=== PATIENT | female | born 1990 | race Caucasian/White ===

== ENCOUNTER 2017-05-08 00:29 | Inpatient (IN) | payer OTHER ==
[~2017-05-08] VITALS: Ht 177.8 cm; Wt 97.0 kg
[2017-05-08] VITALS (31 sets, daily range): BP systolic 91–153; BP diastolic 51–90
[2017-05-08] MEDS ORDERED: ZANTTAB PO (00:58)
[2017-05-08] MEDS ORDERED: PREN1CAP8 PO (00:58)
[2017-05-08 01:24] LABS: MEAN CORPUSCULAR HGB CONC 35.2 g/dl (32.0-36.5); MEAN CORPUSCULAR VOLUME 85.2 fl (80.0-96.0); RED CELL DISTRIBUTION WIDTH 13.3 % (11.5-14.5); WHITE BLOOD COUNT 8.2 K/mm3 (4.0-10.0)
[2017-05-08] MEDS ORDERED: LR 1,000 ML IV SCH (01:43)
[2017-05-08] MEDS ORDERED: LACTATED RINGER'S 1000 ML IV STA (01:43)
[2017-05-08] MEDS ORDERED: miSOPROStol 50 MCG 1/2 TAB (S0191) PO ONE ×2 (01:45→06:45)
--- NOTE | 2017-05-08 01:52 | HPEPDOC ---
Obstetrical History & Physical General Date of Admission May 08, 2017 at 00:29 History of Present Illness 26 y/o at 41+1 by 9 wk US here for scheduled IOL for pending postdates. Uncomplicated Information Provided By: Patient Care Care: Good Care Dating Final EDC: Apr 30, 2017 Final EDC by: 1st trimester (US) Past Medical History Past Obstetrical History : Past Obstetrical History: Primgravida Past Medical History Medical History none Surgical History: [place] teeth, Other (knee 2010) Family History Significant Family History: No pertinent family hx Social History Marital Status: Single Family situation: Spouse/partner home Psychosocial History: No pertinent psych hx * Smoker: non-smoker Alcohol: Denies Drugs: denies Abuse Violence Screening Have you been hit/kicked/slapp: No Have you been sexually assault: No Imunizations Tdap status: current Influenza Status: current Allergies Coded Allergies: Cefaclor (Verified Allergy, Mild, RASH, 05/08/17) Medications Miscellaneous Medications Multivitamins/ ( Multi + Dha 27-0.8-250 mg) 1 Cap Cap, 1 CAP PO Ranitidine Hcl (Zantac 150 Maximum Streng) 150 Mg Tab, 150 TAB PO Physical Examination Physical Examination GENERAL: Alert and oriented times three. ABDOMEN: Gravid and non-tender to touch. FETUS: Is vertex (VTX) by sterile vaginal examination (SVE), Cx 2/70/-3, membranes swept, adeq pelvic for TAMMY, EFW 3400 gm HEART RATE: Regular rate and rhythm. LUNGS: Clear to auscultation (CTA). EXTREMITIES: No edema. Vital Signs/I&O Vital Signs Date Time Temp Pulse Resp B/P (MAP) Pulse Ox O2 Delivery O2 Flow Rate FiO2 05/08/17 00:33 98.6 101 18 118/79 (92) Laboratory Data 24H LABS Laboratory Tests 2 05/08/17 00:41: Serology Scanned Report Hepatitis B Testing 05/08/17 00:55: CBC/BMP Laboratory Tests 05/08/17 00:55 Red Blood Count 4.17, Mean Corpuscular Volume 85.2, Mean Corpuscular Hemoglobin 30.0, Mean Corpuscular Hemoglobin Concent 35.2, Red Cell Distribution Width 13.3 Urine Culture: No Growth Pertinent Laboratoy Data Blood Type: O+ RBC Antibody Screen: Negative HIV: Negative Hepatitis B: Negative Hepatitis C: Unknown Rapid Plasma Reagin: Nonreactive Rubella: Immune Varicella: Immune Chlamydia/Gonorrhea: Negative Group B Streptococcus: Negative Cystic Fibrosis: Negative Glucose Tolerance Test: 92 Anatomy Ultrasound Placenta Location: Posterior Normal Anatomy: Yes Placenta Previa: No Steroid Therapy Steroid Therapy: No Assessment Variability: Moderate Accelerations: Positive Decelerations: None Tocometer Frequency: irregular Assessment/Plan Assessment 41+1, favorable cx. Plan Admit and orient. Supervisor Dyer and consent. Diet: clrs Group B Streptococcus (GBS) negative Labs and intravenous (IV) per unit protocol. Counseled on Pitocin and induction of labor (IOL). Lactated Ringers (LR): Bolus 100mL prior to epidural if desired, o/w at 125 mL/ hr. Anticipate normal spontaneous delivery () C-S as appropriate. Will start with Oral Cytotec 50 mcg and likely transition to pitocin later. Sessions SESSIONS,JOSE Pratt MD May 08, 2017 01:52
--- NOTE | 2017-05-08 06:40 | IPNPDOC ---
Text Note Date of Service The patient was seen on 05/08/17. NOTE NST Cat 1 Having more show ansd cramping but not feeling every ctx Very hungry, had only a small meal for dinner OK to have bfast and will then give 50 mcg cytotec PO, second dose Sessions VS,Christelle, I+O VSChristelle I+O Laboratory Tests 05/08/17 00:55 Red Blood Count 4.17, Mean Corpuscular Volume 85.2, Mean Corpuscular Hemoglobin 30.0, Mean Corpuscular Hemoglobin Concent 35.2, Red Cell Distribution Width 13.3 Vital Signs Date Time Temp Pulse Resp B/P (MAP) Pulse Ox O2 Delivery O2 Flow Rate FiO2 05/08/17 05:02 62 91/54 (66) 05/08/17 00:33 98.6 18 I&O- Last 24 Hours up to 6 AM 05/08/17 06:00 Intake Total 375 ml Output Total 700 ml Balance -325 ml SESSIONS,JOSE Pratt MD May 08, 2017 06:40
[2017-05-08] MEDS ORDERED: OXYTOCIN DRIP 30 UNITS in APPROPRIATE DILUENT 1 EA IV SCH (13:00)
[2017-05-08] MEDS ORDERED: FENTANYL 2MCG/ML ROPIVACAINE 0.2% IN 0.9% NACL 200ML IVBAG As Ordered ONE (16:41)
[2017-05-08] MEDS ORDERED: ONDANSETRON 4MG/2ML VIAL (J2405) IV PRN (19:30)
[2017-05-08] MEDS ORDERED: NALOXONE INJ 0.4 MG/1 ML VIAL (J2310) IV PRN (19:30)
[2017-05-08] MEDS ORDERED: EPIDURAL COMMENT XX SCH (19:30)
[2017-05-08] MEDS ORDERED: LACTATED RINGER'S 1000 ML IV PRN (19:30)
[2017-05-08] MEDS ORDERED: EPIDURAL/PCA KEYS XX PRN (19:30)
[2017-05-08] MEDS ORDERED: ePHEDrine SULFATE 25 MG/5 ML(5MG/ML) SYRINGE IV PRN (19:30)
[2017-05-08] MEDS ORDERED: REFRIGERATOR IV KEYS XX PRN (19:30)
[2017-05-08] MEDS ORDERED: diphenhydrAMINE INJ 50MG/ML VIAL (J1200) IV PRN (19:30)
[2017-05-08] MEDS ORDERED: FENTANYL/ROPIVACAINE/NACL BAG 200 ML EPIDURAL SCH (19:30)
[2017-05-08] MEDS ORDERED: DOCUSATE SODIUM 100 MG CAP PO PRN (23:30)
[2017-05-08] MEDS ORDERED: MOM 30ML SUSPENSION UDC PO PRN (23:30)
[2017-05-08] MEDS ORDERED: MEASLES,MUMPS,RUBELLA VACCINE INJ (MMR-II) (90707) SC SCH (23:30)
[2017-05-08] MEDS ORDERED: METHYLERGONOVINE MALEATE 0.2 MG TAB PO PRN (23:30)
[2017-05-08] MEDS ORDERED: LIDOCAINE 1% SDV INJ 30 ML VIAL SC SCH (23:30)
[2017-05-08] MEDS ORDERED: RHOGAM 300 MCG (1500 IU) INJ (J2790) IM SCH (23:30)
[2017-05-08] MEDS ORDERED: DIBUCAINE 1% OINTMENT 30GM TOP PRN (23:30)
[2017-05-09 01:18] VITALS: BP 123/77
[2017-05-09] MEDS: LR 1,000 ML IV SCH ×3 (01:56→05:00)
[2017-05-09 06:35] VITALS: BP 144/73
[2017-05-09] MEDS: PRENATAL VITAMINS CHEWABLE TABLET PO SCH (08:16)
[2017-05-09] MEDS: ACETAMINOPHEN 500 MG TAB PO PRN ×2 (08:16→15:56)
[2017-05-09 18:03] VITALS: BP 116/77
[2017-05-09] MEDS ORDERED: LIDOCAINE 1% MDV INJ 50 ML VIAL SC ONE (20:45)
[2017-05-10] MEDS: IBUPROFEN 800 MG TAB PO PRN ×2 (00:16→08:45)
[2017-05-10 06:06] VITALS: BP 112/70
--- NOTE | 2017-05-10 06:14 | DS.PDOC ---
Discharge Summary General Date of Admission May 08, 2017 at 00:29 Date of Discharge [id number] Discharge Summary PROCEDURES PERFORMED DURING STAY: spontaneous vaginal delivery ADMITTING DIAGNOSIS: 1. Postdates induction DISCHARGE DIAGNOSES: 1. Healthy male infant HOSPITAL COURSE: Admitted for induction due to post-dates. Uncomplicated, see delivery note. DISCHARGE MEDICATIONS: Motrin, Tylenol, Colace, Lanolin, Dibucaine. Depo- Provera for PPBC given on day of discharge. Physical exam: see note from this morning LABORATORY DATA: Please see below. ACTIVITY: as tolerated. Nothing in vagina for 6 weeks. DIET: regular DISPOSITION:stable TIME SPENT ON DISCHARGE: Greater than 15 minutes. Sessions Vital Signs/I&Os Vital Signs Date Time Temp Pulse Resp B/P (MAP) Pulse Ox O2 Delivery O2 Flow Rate FiO2 05/10/17 06:06 99.0 75 16 112/70 (84) Discharge Medications Miscellaneous Medications Multivitamins/ ( Multi + Dha 27-0.8-250 mg) 1 Cap Cap, 1 CAP PO, (Reported) Ranitidine Hcl (Zantac 150 Maximum Streng) 150 Mg Tab, 150 TAB PO, (Reported) Allergies Coded Allergies: Cefaclor (Verified Allergy, Mild, RASH, 05/08/17) SESSIONSJOSE MD May 10, 2017 06:14
[2017-05-10] MEDS ORDERED: medroxyPROGESTERone ACET IM SUSP 150 MG/ML VIAL (J1050) IM SCH (06:15)
--- NOTE | 2017-05-10 06:18 | IPNPDOC ---
Text Note Date of Service The patient was seen on 05/10/17. NOTE PPD2 prog note States feeling well, no complaints. No heavy VB. Pain controlled. Voiding, ambulatory. Bonding well and breast feeding OK, is working with the nurses. VSSAF CTAB RRR Ut at U-2, firm Ext no CCE a/p: Doing well. d/c this afternoon/evening. To bonding if baby not released. Sessions VS,Christelle, I+O VSChristelle, I+O Vital Signs Date Time Temp Pulse Resp B/P (MAP) Pulse Ox O2 Delivery O2 Flow Rate FiO2 05/10/17 06:06 99.0 75 16 112/70 (84) SESSIONS,JOSE Pratt MD May 10, 2017 06:18
[2017-05-10] MEDS: PRENATAL VITAMINS CHEWABLE TABLET PO SCH (08:45)
[2017-05-10] MEDS ORDERED: IBUP-1114 PO (11:04)
[2017-05-10] MEDS ORDERED: DIBU1OIN TOP (11:04)
[2017-05-10] MEDS ORDERED: COLA100C5 PO (11:04)
[2017-05-10] MEDS ORDERED: ACET50TA PO (11:04)
== END 2017-05-10 12:05 | disposition home or self-care (01) | DRG 775 ==
LOC: M LDI 00:29 → M OBS 05-09 00:59
PROVIDERS: ADMIT Obstetrics & Gynecology; ATTEND Obstetrics & Gynecology
PROC: 10E0XZZ Delivery of Products of Conception, External Approach (ICD-10-PCS; principal; 2017-05-08)
PROC: 0KQM0ZZ Repair Perineum Muscle, Open Approach (ICD-10-PCS; 2017-05-08)
PROC: 3E0DXGC Introduction of Other Therapeutic Substance into Mouth and Pharynx, External Approach (ICD-10-PCS; 2017-05-08)
PROC: 3E033VJ Introduction of Other Hormone into Peripheral Vein, Percutaneous Approach (ICD-10-PCS; 2017-05-08)
DX: O48.0 Post-term pregnancy (principal); Z37.0 Single live birth; Z3A.41 41 weeks gestation of pregnancy; Z88.8 Allergy status to other drugs, medicaments and biological substances; O70.1 Second degree perineal laceration during delivery

== ENCOUNTER → 2018-04-30 | Outpatient (REF) | payer OTHER | LOC: M SFHCLERA 10:47 | DX: R50.9 Fever, unspecified (principal) ==